=== PATIENT | male | born 1935 | race Asian ===

== ENCOUNTER 2017-02-11 16:48 | Inpatient (IN) | payer OTHER ==
[~2017-02-11] VITALS: Ht 180.3 cm; Wt 81.2 kg
[2017-02-11 18:02] LABS: PLATELET COUNT 132 x10^3mcL (130-400)
[2017-02-11 18:04] LABS: CALCIUM 8.7 mg/dL (8.5-10.1); CARBON DIOXIDE 25.9 mmol/L (21-32); CHLORIDE SERUM 106 mmol/L (98-107); CREATININE SERUM 1.3 mg/dL (0.7-1.3); GLUCOSE SERUM 133 mg/dL (74-106); POTASSIUM SERUM 4.1 mmol/L (3.5-5.1); SODIUM SERUM 143 mmol/L (136-145)
[2017-02-11 18:06] LABS: BASOPHIL % 0 % (0-2)
[2017-02-11 18:08] LABS: ALKALINE PHOSPHATASE 99 U/L (46-116); ALT/SGPT 22 U/L (16-63); AST/SGOT 32 U/L (15-37); BILIRUBIN TOTAL 0.59 mg/dL (0.20-1.00)
[2017-02-11 18:09] LABS: ALBUMIN 3.2 g/dL (3.4-5.0)
[2017-02-11] MEDS ORDERED: LATANOPROST2.5 ML OU (19:01)
[2017-02-11] MEDS ORDERED: DORZOLAMIDE HYD10 ML OU (19:02)
[2017-02-11] MEDS ORDERED: ALPHAGAN P5 M1 OU (19:02)
[2017-02-11] MEDS ORDERED: DONEPEZIL PO (19:03)
[2017-02-11] MEDS ORDERED: LOSARTAN POTASS50 M1 PO (19:04)
[2017-02-11] MEDS ORDERED: LEVOTHYROXINE0.05 M2 PO (19:04)
[2017-02-11] MEDS ORDERED: LIPI20 PO (19:04)
[2017-02-11] MEDS ORDERED: TAMSULOSIN HYD0.4 M1 PO (19:05)
[2017-02-11] MEDS ORDERED: FISH OIL1000 MG PO (19:05)
[2017-02-11] MEDS ORDERED: GOOD SENSE ASP325 MG PO (19:05)
[2017-02-11] MEDS ORDERED: MULTIVITAMIN1 SGL PO (19:05)
[2017-02-11] MEDS ORDERED: NAMENDA10 M2 PO (19:06)
[2017-02-11] MEDS ORDERED: CARVEDILOL12.5 M1 PO (19:06)
[2017-02-11] MEDS ORDERED: SEROQUEL25 MG PO (19:06)
[2017-02-11] MEDS ORDERED: NOR5 PO (19:07)
[2017-02-11 21:01] VITALS: BP 149/88
[2017-02-11 21:10] VITALS: BP 123/65
[2017-02-11 21:15] VITALS: Ht 180.3 cm; Wt 81.2 kg
[2017-02-11 23:27] LABS: T3 TOTAL 0.78 ng/mL
[2017-02-11 23:28] LABS: MAGNESIUM 2.4 mg/dL (1.8-2.4); PHOSPHOROUS 3.7 mg/dL (2.5-4.9)
[2017-02-11 23:31] LABS: CHOLESTEROL/HDL RATIO 2.1
[2017-02-11 23:37] LABS: FREE T4 1.3 ng/dL (0.76-1.46); FREE THYROXINE INDEX 3.1 ug/dL (1.4-4.5)
[2017-02-12 05:50] VITALS: BP 107/71
[2017-02-12 06:50] LABS: BASOPHIL % 0 % (0-2); PLATELET COUNT 120 x10^3mcL (130-400)
[2017-02-12 07:08] LABS: CALCIUM 7.8 mg/dL (8.5-10.1); CARBON DIOXIDE 25.3 mmol/L (21-32); CHLORIDE SERUM 109 mmol/L (98-107); CREATININE SERUM 1.2 mg/dL (0.7-1.3); GLUCOSE SERUM 140 mg/dL (74-106); POTASSIUM SERUM 3.7 mmol/L (3.5-5.1); SODIUM SERUM 143 mmol/L (136-145)
[2017-02-12 10:21] VITALS: BP 102/52
[2017-02-12 13:26] VITALS: BP 134/62
[2017-02-12 16:55] VITALS: BP 153/81
[2017-02-12 21:52] VITALS: BP 146/78
[2017-02-13 06:05] VITALS: BP 133/69
[2017-02-13 07:05] LABS: BASOPHIL % 0.2 % (0-2)
[2017-02-13 07:19] LABS: PLATELET COUNT 108 x10^3mcL (130-400); RED CELL DISTRIBUTION WIDTH 17.7 % (11.5-14.5)
[2017-02-13 07:28] LABS: CALCIUM 7.8 mg/dL (8.5-10.1); CARBON DIOXIDE 24.4 mmol/L (21-32); CHLORIDE SERUM 109 mmol/L (98-107); CREATININE SERUM 0.9 mg/dL (0.7-1.3); GLUCOSE SERUM 121 mg/dL (74-106); POTASSIUM SERUM 3.6 mmol/L (3.5-5.1); SODIUM SERUM 136 mmol/L (136-145)
[2017-02-13 10:42] VITALS: BP 143/75
[2017-02-13 17:06] VITALS: BP 118/65
[2017-02-13 22:13] VITALS: BP 169/82
[2017-02-14 06:56] VITALS: BP 174/84
[2017-02-14 07:08] LABS: BASOPHIL % 0.3 % (0-2)
[2017-02-14 07:14] LABS: PLATELET COUNT 112 x10^3mcL (130-400); RED CELL DISTRIBUTION WIDTH 17.1 % (11.5-14.5)
[2017-02-14 07:52] LABS: CALCIUM 8.2 mg/dL (8.5-10.1); CARBON DIOXIDE 26.6 mmol/L (21-32); CHLORIDE SERUM 108 mmol/L (98-107); CREATININE SERUM 0.9 mg/dL (0.7-1.3); GLUCOSE SERUM 89 mg/dL (74-106); POTASSIUM SERUM 3.9 mmol/L (3.5-5.1); SODIUM SERUM 143 mmol/L (136-145)
[2017-02-14 10:28] VITALS: BP 157/70
[2017-02-14 16:58] LABS: IRON 17 ug/dL (65-170); TOTAL IRON BINDING CAPACITY 180 ug/dL (250-450)
[2017-02-14 17:16] LABS: RED BLOOD CELLS 5.25 M/mm3 (4.52-5.90)
[2017-02-14 18:12] VITALS: BP 142/78
[2017-02-14 21:58] VITALS: BP 148/72
[2017-02-15 06:41] VITALS: BP 167/88
[2017-02-15 06:42] LABS: BASOPHIL % 0.4 % (0-2)
[2017-02-15 06:53] LABS: CALCIUM 8.1 mg/dL (8.5-10.1); CARBON DIOXIDE 29.4 mmol/L (21-32); CHLORIDE SERUM 105 mmol/L (98-107); CREATININE SERUM 0.9 mg/dL (0.7-1.3); GLUCOSE SERUM 98 mg/dL (74-106); MAGNESIUM 1.8 mg/dL (1.8-2.4); PHOSPHOROUS 3.5 mg/dL (2.5-4.9); POTASSIUM SERUM 3.8 mmol/L (3.5-5.1); SODIUM SERUM 140 mmol/L (136-145)
[2017-02-15 07:06] LABS: PLATELET COUNT 117 x10^3mcL (130-400); RED CELL DISTRIBUTION WIDTH 17.1 % (11.5-14.5)
[2017-02-15 10:53] VITALS: BP 169/90
[2017-02-15 17:40] VITALS: BP 184/93
[2017-02-15 21:28] VITALS: BP 172/85
[2017-02-16 00:45] VITALS: BP 153/85
[2017-02-16 05:36] VITALS: BP 152/67
[2017-02-16 07:04] LABS: BASOPHIL % 0.2 % (0-2); PLATELET COUNT 218 x10^3mcL (130-400)
[2017-02-16 07:11] LABS: RED CELL DISTRIBUTION WIDTH 16.6 % (11.5-14.5)
[2017-02-16 07:19] LABS: rbc morphology (normal/abnorm) ABNORMAL (NORMAL)
[2017-02-16 09:51] VITALS: BP 148/81
[2017-02-16] MEDS ORDERED: NOR5 PO (12:47)
[2017-02-16] MEDS ORDERED: TAM75 PO (12:50)
[2017-02-16] MEDS ORDERED: LEVOFLOXACIN500 M1 PO (13:13)
[2017-02-16] MEDS ORDERED: CLINDAMYCIN HC300 MG PO (13:14)
[2017-02-16] MEDS ORDERED: LAC PO (13:15)
[2017-02-16 13:59] VITALS: BP 148/81
[2017-02-16 15:20] VITALS: BP 148/81
[2017-02-16 15:51] LABS: microscopic required? YES; urine erythrocyte 1+ (NEGATIVE)
[2017-02-16] MEDS ORDERED: PROVENTIL0.09 MG/A1 INH (16:33)
[2017-02-16 17:15] VITALS: BP 163/87
== END 2017-02-16 17:30 | disposition home health service (06) | DRG 177 ==
LOC: ED 16:48 → DU 19:11 → MU 19:11 → DU 19:13 → MU 02-13 07:45
PROVIDERS: Emergency Medicine; Family Medicine; Student in an Organized Health Care Education/Training Program
DX: J69.0 Pneumonitis due to inhalation of food and vomit (principal); J96.00 Acute respiratory failure, unspecified whether with hypoxia or hypercapnia; N17.0 Acute kidney failure with tubular necrosis; G93.41 Metabolic encephalopathy; I50.43 Acute on chronic combined systolic (congestive) and diastolic (congestive) heart failure; J44.1 Chronic obstructive pulmonary disease with (acute) exacerbation; D68.69 Other thrombophilia; E44.0 Moderate protein-calorie malnutrition; J09.X2 Influenza due to identified novel influenza A virus with other respiratory manifestations; I11.0 Hypertensive heart disease with heart failure; E86.0 Dehydration; G30.9 Alzheimer's disease, unspecified; F02.80 Dementia in other diseases classified elsewhere, unspecified severity, without behavioral disturbance, psychotic disturbance, mood disturbance, and anxiety; E11.51 Type 2 diabetes mellitus with diabetic peripheral angiopathy without gangrene; E03.9 Hypothyroidism, unspecified; N40.0 Benign prostatic hyperplasia without lower urinary tract symptoms; H54.8 Legal blindness, as defined in USA; Z95.0 Presence of cardiac pacemaker; Z68.25 Body mass index [BMI] 25.0-25.9, adult
CPT/HCPCS: 82962; 83880; 84439; 87804; 92526-GN; 92610; 94150; 97110-GP; 97116-GP; 97530-GP; J1956; J2250; J3010; J3490; J7030; J7613; J7620; J7644; Q0092